=== PATIENT | male | born 1990 | race Caucasian/White ===

== ENCOUNTER 2016-09-27 21:48 | Emergency (ER) | payer SELFPAY ==
[2016-09-27] MEDS ORDERED: AMOXICILLIN 250 MG CAPSULE PO ONE (22:11)
--- NOTE | 2016-09-27 22:11 | ER NURSING DOCUMENTATION ---
Nurse's Notes [facility] Name:Kenrick Andres Age:25 yrs Sex:Male :1990 Arrival Date:09/27/2016 Time:21:48 Bed2 Private MD:PhysicianNisha Diagnosis:Dental pain Presentation: 09/27 21:49 Presenting complaint: Patient states: right upper dental pain started today. Transition lb of care: Home. Notified ED Physician of Srikanth Ritter notified. 21:49 Acuity: LY 5 lb 21:49 Method Of Arrival: Walk In lb Triage Assessment: 21:51 General: Appears in no apparent distress, Behavior is appropriate for age. Pain: lb Complains of pain in right buccal mucosa Pain does not radiate. Pain currently is 10 out of 10 on a pain scale. EENT: Reports pain. Historical: - Allergies: No known drug Allergies; - Home Meds: 1. None - PMHx: None; - PSHx: arm ; - Tetanus: < 10 years. - Ebola Screening: : Patient denies exposure to infectious person. Patient denies travel to an Ebola-affected area in the 21 days before illness onset. . - Immunization history: Flu Vaccine None. - Social history: Smoking status: Patient uses tobacco products, current every day smoker. Patient uses alcohol occasionally. Screenin:52 Infectious Disease Risk None. Abuse screen: Denies threats or abuse. Denies injuries lb from another. Nutritional screening: No deficits noted. Assessment: 21:52 See Triage Assessment done by same RN. lb Vital Signs: 21:51 BP 160 / 112; Pulse 89; Resp 18; Temp 98(O); Pulse Ox 92% on R/A; Weight 74.84 kg; lb Height 5 ft. 7 in. (170.18 cm); Pain 10/10; 22:09 BP 140 / 90; lb 21:51 Body Mass Index 25.84 (74.84 kg, 170.18 cm) lb ED Course: 21:49 Patient arrived in ED. em2 21:49 Physician, Nisha is Private Physician. em2 21:49 Wilber Duke MD is Attending Physician. cb 21:49 Lucero Pablo is Primary Nurse. lb 21:50 Triage completed. lb 21:52 Valuables Remains with patient. lb 22:02 Private, Dentist is Referral Physician. jm Administered Medications: 22:09 Drug: Amoxicillin 500 mg; Route: PO; lb 22:09 Follow up: Response: Dispensed at discharge. lb Outcome: 22:02 Discharge ordered by . cb 22: Discharged to home ambulatory. aly 22: Condition: good 22:09 Discharge Assessment: Patient awake, alert and oriented x 3. No cognitive and/or functional deficits noted. Patient verbalized understanding of disposition instructions. 22:09 Instructed on discharge instructions, follow up and referral plans. 22:10 Patient left the ED. lb Signatures: Wilber Duke MD MD jm Meinking-reg, Cesario em2 Lucero Pablo
--- NOTE | 2016-09-27 22:11 | ER PHYSICIAN DOCUMENTATION ---
Physician Documentation [facility] Name:Kenrick Andres Age:25 yrs Sex:Male :1990 Arrival Date:09/27/2016 Time:21:48 Bed2 Private MD:Physician, No ED Wilber Mckeon Disposition: 09/27/16 22:02 Discharged to Home/Self Care. Impression: Dental pain. - Condition is Good. - Discharge Instructions: DENTAL PAIN. - Prescriptions for Amoxicillin 500 mg Oral Capsule - take 1 capsule by ORAL route every 8 hours for 10 days; 30 tablet. - Medical Reconciliation form form. - Follow up: Private, Dentist; When: 1 week; Reason: Continuance of care. - Problem is new. - Symptoms have improved. HPI: 09/27 22:00 This 25 yrs old Male presents to ER via Walk In with complaints of Toothache. jm 22:00 The patient presents with pain, that is acute. The problem is located in the right jm buccal mucosa. Onset: The symptom(s)/episode began/occurred today. Duration: The symptoms are continuous. Historical: - Allergies: No known drug Allergies; - Home Meds: 1. None - PMHx: None; - PSHx: arm ; - Tetanus: < 10 years. - Ebola Screening: : Patient denies exposure to infectious person. Patient denies travel to an Ebola-affected area in the 21 days before illness onset. . - Immunization history: Flu Vaccine None. - Social history: Smoking status: Patient uses tobacco products, current every day smoker. Patient uses alcohol occasionally. ROS: 22:00 Constitutional: Negative for fatigue, fever. jm 22:00 ENT: Positive for dental pain, Negative for difficulty swallowing, difficulty handling secretions. 22:00 Skin: Negative for swelling. Exam: 22:00 Constitutional: The patient appears alert, awake. jm 22:00 ENT: Mouth: is normal, Dental exam: cellulitis, is not appreciated, fractured teeth are noted, specifically the upper right second molar (#2), gum swelling, not appreciated. 22:00 Cardiovascular: Rate: normal, Rhythm: regular. Vital Signs: 21:51 BP 160 / 112; Pulse 89; Resp 18; Temp 98(O); Pulse Ox 92% on R/A; Weight 74.84 kg; lb Height 5 ft. 7 in. (170.18 cm); Pain 10/10; 22:09 BP 140 / 90; lb 21:51 Body Mass Index 25.84 (74.84 kg, 170.18 cm) lb Procedures: 22:00 Nerve block: (dental) of periapical block, Medication: Marcaine 0.5%, Amount: 5 mls jm were injected, Effect: the patient has resolution of the pain, Performed by Wilber Duke MD Patient tolerated well. MDM: 21:49 Patient medically screened. jm 22:00 Differential diagnosis: dental caries. Data reviewed: vital signs, nurses notes, and as jm a result, I will discharge patient. Counseling: I had a detailed discussion with the patient and/or guardian regarding: the historical points, exam findings, and any diagnostic results supporting the discharge/admit diagnosis, the need for outpatient follow up, a dentist. Dispensed Medications: 22:09 Drug: Amoxicillin 500 mg; Route: PO; lb 22:09 Follow up: Response: Dispensed at discharge. lb Signatures: Wilber Duke MD MD jm Bollock, Lynda
== END 2016-09-27 22:11 | disposition home or self-care (01) ==
LOC: ER 21:48
DX: K08.89 Other specified disorders of teeth and supporting structures (principal); K03.81 Cracked tooth; F17.210 Nicotine dependence, cigarettes, uncomplicated
CPT/HCPCS: 64400; 99283

== ENCOUNTER 2016-10-19 05:21 | Emergency (ER) | payer SELFPAY ==
[2016-10-19] MEDS ORDERED: WATER FOR INJECTION 10 ML ONE (05:53)
[2016-10-19] MEDS ORDERED: PENICILLIN VK PREPAC 500 MG TABLET PO ONE (05:53)
[2016-10-19] MEDS ORDERED: cefTRIAXone SODIUM 1,000 MG/10 ML VIAL ONE (05:53)
[2016-10-19] MEDS ORDERED: oxyCODONE/APAP 5/325 MG PREPAC 1 TAB TABLET PO ONE (05:54)
--- NOTE | 2016-10-19 05:54 | ER NURSING DOCUMENTATION ---
Nurse's Notes [facility] Name:Kenrick Andres Age:25 yrs Sex:Male :1990 Arrival Date:10/19/2016 Time:05:21 Bed2 Private MD: Diagnosis:Abscess Tooth Presentation: 10/19 05:33 Presenting complaint: Patient states: right side facial swelling for 1 day. Transition lb of care: patient was not received from another setting of care. Notified ED Physician of Dr. Ojeda notified. 05:33 Acuity: LY 3 lb 05:33 Method Of Arrival: Walk In lb Triage Assessment: 05:34 General: Appears uncomfortable, Behavior is appropriate for age, pleasant. Pain: lb Complains of pain in right cheek and right jaw Pain does not radiate. Pain currently is 5 out of 10 on a pain scale. EENT: 05:35 Neuro: No deficits noted. Cardiovascular: No deficits noted. Respiratory: Airway is lb patent Trachea midline Respiratory effort is even, unlabored, Respiratory pattern is regular, symmetrical, Breath sounds are clear bilaterally. GI: No deficits noted. : No deficits noted. Derm: No deficits noted. Historical: - Allergies: No known drug Allergies; - Home Meds: 1. None - PMHx: None; - Tetanus: < 10 years. - Ebola Screening: : Patient denies exposure to infectious person. Patient denies travel to an Ebola-affected area in the 21 days before illness onset. . - Immunization history: Flu Vaccine None. - Social history: Smoking status: Patient states was never smoker of tobacco. Patient uses alcohol only on a social basis. Screenin:36 Infectious Disease Risk None. Abuse screen: Denies threats or abuse. Denies injuries lb from another. Nutritional screening: No deficits noted. Assessment: 05:36 See Triage Assessment done by same RN. lb Vital Signs: 05:26 BP 161 / 93 LA Sitting (auto/reg); Pulse 85 LA; Resp 16 S; Temp 98.4(O); Pulse Ox 93% em3 on R/A; Weight 77.11 kg (R); Height 5 ft. 7 in. (170.18 cm) (R); Pain 0/10; 05:26 Body Mass Index 26.63 (77.11 kg, 170.18 cm) em3 ED Course: 05:22 Patient arrived in ED. em3 05:24 Edu Ojeda MD is Attending Physician. be 05:27 Valuables Remains with patient Patient has correct armband on for positive em3 identification. Bed in low position. Call light in reach. 05:33 Lucero Pablo is Primary Nurse. lb 05:34 Triage completed. lb Administered Medications: 05:52 Drug: Percocet Tablet (5 mg-325 mg) 6 tabs; Route: PO; lb 05:52 Follow up: Response: Pharmacy closed - take home med pack lb 05:52 Drug: Penicillin VK 500 mg; Route: PO; lb 05:52 Follow up: Response: Pharmacy closed - take home med pack lb 05:52 Drug: Rocephin 1 grams; Route: IM; Site: left gluteus; lb 05:53 Follow up: Response: Dispensed at discharge. lb 05:52 Drug: benzacaine 1 application; Route: Topical; Site: wound; lb 05:53 Follow up: Response: No adverse reaction lb Outcome: 05:35 Discharge ordered by . be 05:53 Discharged to home ambulatory. lb 05:53 Condition: good 05:53 Discharge Assessment: Patient awake, alert and oriented x 3. No cognitive and/or functional deficits noted. Patient verbalized understanding of disposition instructions. 05:53 Instructed on discharge instructions, follow up and referral plans. no drinking with medication, no driving heavy equipment. 05:54 Patient left the ED. lb 10/20 13:29 Discharge F/U Call: Spoke with: patient. other: Name: pt has seen a dentist and is st feeling better. Signatures: Patience Mackay, RN RN Edu Peck MD MD be Meiklejohn, Eric em3 Lucero Pablo lb
--- NOTE | 2016-10-19 05:54 | ER PHYSICIAN DOCUMENTATION ---
Physician Documentation [facility] Name:Kenrick Andres Age:25 yrs Sex:Male :1990 Arrival Date:10/19/2016 Time:05:21 Bed2 Private MD: Edu Faria Disposition: 10/19/16 05:35 Discharged to Home/Self Care. Impression: Abscess Tooth. - Condition is Good. - Discharge Instructions: DENTAL ABSCESS w/ Facial Cellulitis. - Prescriptions for PENVK - take 500 milligram by ORAL route 4 times per day; 40 milligram. Percocet 5- 325 mg Oral Tablet - take 1 tablet by ORAL route every 6 hours As needed; 20 tablet. - Medical Reconciliation form form. - Follow up: Private Physician; When: Today; Reason: Recheck today's complaints, Continuance of care. - Problem is new. - Symptoms have worsened. HPI: 10/19 05:45 This 25 yrs old Male presents to ER via Walk In with complaints of Facial be Swelling. 05:45 The patient presents with pain, that is acute, swelling. The problem is located in the be upper right cuspid. Onset: The symptom(s)/episode began/occurred gradually, last week. Severity of symptoms: At their worst the symptoms were severe, earlier today, in the emergency department the symptoms are unchanged, despite home interventions. 05:54 The problem is located in the upper right cuspid (#6). be Historical: - Allergies: No known drug Allergies; - Home Meds: 1. None - PMHx: None; - Tetanus: < 10 years. - Ebola Screening: : Patient denies exposure to infectious person. Patient denies travel to an Ebola-affected area in the 21 days before illness onset. . - Immunization history: Flu Vaccine None. - Social history: Smoking status: Patient states was never smoker of tobacco. Patient uses alcohol only on a social basis. ROS: 05:46 ENT: Positive for dental pain, of the upper right cuspid, marked right facial swelling.be Exam: 05:46 Constitutional: This is a well developed, well nourished patient who is awake, alert, be and in acute distress. 05:46 Head/face: Noted is swelling, that is moderate, tenderness, that is moderate, of the right cheek. 05:46 Neck: Lymph nodes: no appreciated lymphadenopathy. 05:53 ENT: Dental exam: dental caries, that is moderate, specifically in the upper right be cuspid (#6). Vital Signs: 05:26 BP 161 / 93 LA Sitting (auto/reg); Pulse 85 LA; Resp 16 S; Temp 98.4(O); Pulse Ox 93% em3 on R/A; Weight 77.11 kg (R); Height 5 ft. 7 in. (170.18 cm) (R); Pain 0/10; 05:26 Body Mass Index 26.63 (77.11 kg, 170.18 cm) em3 Procedures: 05:49 Nerve block: of periapical block, Medication: Lidocaine 2% without epinephrine, Amount: be 3 mls were injected, Effect: the patient's symptoms are improved, markedly, Performed by Edu Ojeda MD Patient tolerated well. MDM: 05:24 Patient medically screened. be 05:48 Differential diagnosis: dental caries, dental abscess, acute necrotizing ulcerative be gingivitis. Data reviewed: vital signs, nurses notes, and as a result, I will discharge patient, administer antibiotics Rocephin, prescribe pain medication, Percocet and PenVK. Dispensed Medications: 05:52 Drug: Percocet Tablet (5 mg-325 mg) 6 tabs; Route: PO; lb 05:52 Follow up: Response: Pharmacy closed - take home med pack lb 05:52 Drug: Penicillin VK 500 mg; Route: PO; lb 05:52 Follow up: Response: Pharmacy closed - take home med pack lb 05:52 Drug: Rocephin 1 grams; Route: IM; Site: left gluteus; lb 05:53 Follow up: Response: Dispensed at discharge. lb 05:52 Drug: benzacaine 1 application; Route: Topical; Site: wound; lb 05:53 Follow up: Response: No adverse reaction lb Signatures: Edu Ojeda MD MD be Bollock, Lynda lb
== END 2016-10-19 05:54 | disposition home or self-care (01) ==
LOC: ER 05:21
DX: K04.7 Periapical abscess without sinus (principal); R22.0 Localized swelling, mass and lump, head; K02.9 Dental caries, unspecified
CPT/HCPCS: 96372; 99283; J0696